=== PATIENT | male | born 1975 | race Two or more races ===

== ENCOUNTER 2020-10-17 18:24 | Emergency (ER) | payer SELFPAY ==
[~2020-10-17] VITALS: Ht 170.2 cm; Wt 99.8 kg
[2020-10-17 18:30] VITALS: BP 160/100
[2020-10-17] MEDS ORDERED: DIPH25CA83 PO (18:42)
[2020-10-17] MEDS ORDERED: TRIA15OI2 TP (18:42)
--- NOTE | 2020-10-17 18:54 | NUR ---
Patient discharged to home in stable condition. Written and verbal after care instructions given. Patient verbalizes understanding of instruction.
== END 2020-10-17 18:55 | disposition home or self-care (01) ==
LOC: ER 18:34
DX: S00.86XA Insect bite (nonvenomous) of other part of head, initial encounter (principal); S10.96XA Insect bite of unspecified part of neck, initial encounter; S20.369A Insect bite (nonvenomous) of unspecified front wall of thorax, initial encounter; I10 Essential (primary) hypertension; Z79.899 Other long term (current) drug therapy; W57.XXXA Bitten or stung by nonvenomous insect and other nonvenomous arthropods, initial encounter; Y93.89 Activity, other specified; Y92.89 Other specified places as the place of occurrence of the external cause; Y99.8 Other external cause status